=== PATIENT | female | born 1975 | race Caucasian/White ===

== ENCOUNTER 2022-11-30 16:11 | Outpatient (CLI) | payer BC | END 2022-11-30 16:12 | disposition home or self-care (01) | LOC: CSHLAB 16:11 | PROVIDERS: ATTEND Obstetrics & Gynecology | DX: Z01.812 Encounter for preprocedural laboratory examination (principal); D25.9 Leiomyoma of uterus, unspecified; R10.2 Pelvic and perineal pain | CPT/HCPCS: 84703; 85027; 86850; 86900; 86901 ==

== ENCOUNTER 2022-12-02 07:03 | Day surgery (SDC) | payer BC ==
[2022-11-27 10:00] VITALS: BMI 33.5
[2022-11-30 17:29] LABS: Hemoglobin 12.6 g/dL (12.0-15.5); Mean Corpuscular HGB CONC 34.5 g/dL (32.0-36.0); Mean Corpuscular Hemoglobin 30.4 pg (27.0-33.0); Mean Platelet Volume 10.4 fl (7.4-10.4); Platelet Count 220 10x3/uL (150-450); RBC Distribution Width 13.2 % (11.5-14.5); Red Blood Cell (RBC) Count 4.15 10x6/uL (3.90-5.03); White Blood Cell (WBC) Count 9.2 10x3/uL (3.5-10.5)
[2022-11-30 17:41] LABS: BHCG - Serum Negative (NEGATIVE); Pregs Control Background? CLEAR/WHITE (CLR/WHITE); Pregs Control Bar Appear? YES (CONTROL BAR)
[2022-12-02] MEDS ORDERED: CeleCOXIB 100 MG CAP ONE (07:21)
[2022-12-02] MEDS ORDERED: Famotidine/PF 20 mg/2ml Vial ONE (07:22)
[2022-12-02] MEDS ORDERED: Gabapentin 300 MG CAP ONE (07:22)
[2022-12-02] MEDS ORDERED: EPINEPHrine 1 MG/ML AMP ONE (08:26)
[2022-12-02] MEDS ORDERED: Bupivacaine PF 0.5% 30 ML VIAL ONE (08:26)
[2022-12-02] MEDS ORDERED: CEFAZOLIN 2 GM VIAL ONE (08:54)
[2022-12-02] MEDS ORDERED: Midazolam HCl 2 mg/2 ml Vial ONE ×2 (09:00→09:04)
[2022-12-02] MEDS ORDERED: Rocuronium Bromide 10 MG/ML (10ML VIAL) ONE (09:04)
[2022-12-02] MEDS ORDERED: Ondansetron PF 4 MG/2 ML Vial ONE (09:04)
[2022-12-02] MEDS ORDERED: Fentanyl 250 MCG/5 ML VIAL ONE (09:04)
[2022-12-02] MEDS ORDERED: PROPOFOL 20 ML ONE (09:04)
[2022-12-02] MEDS ORDERED: Lidocaine 2% PF 5 ML VIAL ONE (09:05)
[2022-12-02] MEDS ORDERED: Ketorolac Tromethamine 30 MG/ML VIAL ONE ×2 (09:05→11:06)
[2022-12-02] MEDS ORDERED: Glycopyrrolate 0.2 MG/ML 5 ML SYRINGE ONE (09:05)
[2022-12-02] MEDS ORDERED: Dexamethasone 4 mg/ml Vial ONE (09:05)
[2022-12-02] MEDS ORDERED: PHENYLEPHRINE-NS 100 MCG/ML 10 ML SYRINGE ONE (09:22)
[2022-12-02] MEDS ORDERED: HYDROcodone/Acetaminophen 5/325 mg Tablet ONE (12:16)
== END 2022-12-02 13:30 | disposition home or self-care (01) ==
LOC: CSHSDC 07:03
PROVIDERS: ATTEND Obstetrics & Gynecology
PROC: 0UT7FZZ Resection of Bilateral Fallopian Tubes, Via Natural or Artificial Opening With Percutaneous Endoscopic Assistance (ICD-10-PCS; principal; 2022-12-02)
PROC: 0UT9FZZ Resection of Uterus, Via Natural or Artificial Opening With Percutaneous Endoscopic Assistance (ICD-10-PCS; principal; 2022-12-02)
DX: D25.9 Leiomyoma of uterus, unspecified (principal); N88.8 Other specified noninflammatory disorders of cervix uteri; N83.8 Other noninflammatory disorders of ovary, fallopian tube and broad ligament; E78.5 Hyperlipidemia, unspecified; Z79.899 Other long term (current) drug therapy; K21.9 Gastro-esophageal reflux disease without esophagitis; Z88.8 Allergy status to other drugs, medicaments and biological substances
CPT/HCPCS: 84703; 85027; 86850; 86900; 86901; 88307; C1776; J0171; J1100; J1885; J2001; J2250; J2405; J2704; J3010; S0020; S0028